=== PATIENT | female | born 1980 | race Caucasian/White ===

== ENCOUNTER → 2016-06-11 | Outpatient (CLI) | payer OTHER ==
--- NOTE | 2016-06-12 14:03 | CR ---
EXAM DATE: 06/11/16 PATIENT'S AGE: 35 Patient: FELICIANO MCKEON Facility: [place], [place] Site . Site : 1980 Study: XRay Extremity calcaneous [id number]/10/2017 3:59:25 PM Ordering Physician: Akash Conteh Final Report: INDICATION: Pain TECHNIQUE: Two views right calcaneus COMPARISON: None FINDINGS: Bones: Alignment is normal. No fractures large plantar calcaneal spur. Small dorsal calcaneal spur. Joint spaces: Unremarkable. Soft tissues: Unremarkable. IMPRESSION: Large plantar calcaneal spur. Dictated by Saúl Costello MD @ Jun 11 2016 10:18PM (Electronic Signature) Report Signed by Proxy and Original Signed Document filed in the Medical Record. RICHARD
== END ==
LOC: MW.CHFP 15:32
PROVIDERS: ATTEND Nurse Practitioner Family
DX: M79.671 Pain in right foot (principal); M77.31 Calcaneal spur, right foot
CPT/HCPCS: 73650-26-RT; 73650-RT

== ENCOUNTER 2020-08-06 21:21 | Emergency (ER) | payer OTHER ==
--- NOTE | 2020-08-06 22:17 | EDM.PDOC ---
ED HPI GENERAL MEDICAL PROBLEM - General Chief Complaint: Laceration Stated Complaint: LT RING FINGER LACERATION Time Seen by Provider: 08/06/20 21:55 - History of Present Illness INITIAL COMMENTS - FREE TEXT/NARRATIVE: History of present illness: [] Patient cut the tip of her left ring finger with every dominant right hand while she was using a knife to prepare food. She has no other complaint. Review of systems: As per history of present illness and below otherwise all systems reviewed and negative. Past medical history: As per history of present illness and as reviewed below otherwise noncontributory. Surgical history: As per history of present illness and as reviewed below otherwise noncontributory. Social history: No reported history of drug or alcohol abuse. Family history: As per history of present illness and as reviewed below otherwise noncontributory. Physical exam: Constitutional - well developed, well-nourished and in no acute distress HEENT - normocephalic, no evidence of trauma - external nose and mouth normal - no mass in neck and no JVD - mucosae moist EYES - full EOM, PERRL, no icterus - no evidence of inflammation, injection, or drainage Respiratory - no respiratory distress, equal bilateral expansion Musculoskeletal no gross deformity of long bones or joints - no tenderness, swelling or edema Neurologic - Alert and oriented times four - CN II-XII grossly intact - motor se nsory and coordination symmetrically normal Psychiatric - appropriate mood and affect with normal thought content Hematologic - No petechiae or purpura - mucosa appropriate color and sclera not pale - normal nail bed color and refill Integument -type laceration over the tip of the pulp space not involving the nail bed on the distal fourth digit of the left upper extremity. It appears that the skin is viable. No rash or evidence of trauma - normal turgor Diagnostics: [] Therapeutics: [] Impression: [] Plan: [] Definitive disposition and diagnosis as appropriate pending reevaluation and review of above. Right Finger-Ring Pain Score (Numeric/FACES): 2 - Related Data Allergies Allergy/AdvReac Type Severity Reaction Status Date / Time Penicillins Allergy Other Verified 08/06/20 21:55 Home Meds: Home Meds . 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 ED EXAM, SKIN/RASH Exam: See Below Text/Narrative:: My physical exam is in the HPI ED SKIN PROCEDURES - Laceration/Wound Repair Left Hand Appearance: Subcutaneous, Other (Lap) Distal NVT: Neuro & Vascular Intact, No Tendon Injury Local Anesthesia - Lidocaine (Xylocaine): 1% Plain Local Anesthetic Volume: 3cc Skin Prep: Providone-Iodine (Betadine), Saline Saline Irrigation (cc's): 500 Exploration/Debridement/Repair: Wound Explored, In a Bloodless Field Closed with: Sutures Lac/Wound length In cm: 1 Suture Size: 5-0 # of Sutures: 4 Suture Type: Nylon Course - Vital Signs Last Recorded V/S: Last Vital Signs Temp 36.4 C 08/06/20 21:50 Pulse 69 08/06/20 21:50 Resp 14 08/06/20 21:50 BP 119/75 08/06/20 21:50 Pulse Ox 100 08/06/20 21:50 - Orders/Labs/Meds Meds: Medications Discontinued Medications Generic Name Dose Route Start Last Admin Trade Name Rowena PRN Reason Stop Dose Admin Lidocaine HCl 5 ml 08/06/20 21:56 08/06/20 22:15 Lidocaine 1% 5 Ml Sdv INJECT 08/06/20 21:57 5 ml ONETIME ONE Administration Departure - Departure Time of Disposition: 23:32 Disposition: Home, Self-Care 01 Condition: Good Clinical Impression: Laceration of finger of left hand - Discharge Information Instructions: Laceration Care, Adult, [id number] Referrals: Cynthia Carrera NP [Primary Care Provider] - Forms: ED Department Discharge Additional Instructions: Return at the area where the flap is on the finger turns black. Otherwise have sutures out 7 to 10 days. [facility] - Primary Care [address] [place] [id number] [facility] [address] [place] [address] The following information is given to patients seen in the emergency department who are being discharged to home. This information is to outline your options for follow-up care. We provide all patients seen in our emergency department with a follow-up referral. The need for follow-up, as well as the timing and circumstances, are variable depending upon the specifics of your emergency department visit. If you don't have a primary care physician on staff, we will provide you with a referral. We always advise you to contact your personal physician following an emergency department visit to inform them of the circumstance of the visit and for follow-up with them and/or the need for any referrals to a consulting specialist. The emergency department will also refer you to a specialist when appropriate. This referral assures that you have the opportunity for follow-up care with a specialist. All of these measure are taken in an effort to provide you with optimal care, which includes your follow-up. Under all circumstances we always encourage you to contact your private physician who remains a resource for coordinating your care. When calling for follow-up care, please make the office aware that this follow-up is from your recent emergency room visit. If for any reason you are refused follow-up, please contact the [facility] Emergency Department at and asked to speak to the emergency department charge nurse. Sepsis Event Note (ED) - Evaluation Sepsis Screening Result: No Definite Risk - Focused Exam Vital Signs: Vital Signs Temp Pulse Resp BP Pulse Ox 08/06/20 21:50 36.4 C 69 14 119/75 100
== END 2020-08-06 23:44 | disposition home or self-care (01) ==
LOC: MW.ED 21:21
DX: S61.215A Laceration without foreign body of left ring finger without damage to nail, initial encounter (principal); Z88.0 Allergy status to penicillin; W26.0XXA Contact with knife, initial encounter
CPT/HCPCS: 12001; 99282-25; 99283

== ENCOUNTER 2020-08-16 17:20 | Emergency (ER) | payer OTHER | END 2020-08-16 17:36 | disposition left against medical advice (07) | LOC: MW.ED 17:20 | DX: S61.215D Laceration without foreign body of left ring finger without damage to nail, subsequent encounter (principal); Z48.02 Encounter for removal of sutures | CPT/HCPCS: 99281 ==